=== PATIENT | female | born 1965 | race African-American/Black ===

== ENCOUNTER 2021-05-06 01:20 | Inpatient (IN) ==
[2021-05-06] MEDS ORDERED: ACETAMINOPHEN 500 MG TABLET PO STA (01:59)
[2021-05-06] MEDS ORDERED: SODIUM CHLORIDE 0.9% 500 ML IV STA (01:59)
[2021-05-06 03:10] LABS: Basophils % 0.3 % (0.0-0.8); Hematocrit 31.6 VOL% (35.7-47.0); Hemoglobin 10.1 GM/DL (12.0-16.0); Immature Granulocytes % 0.3 %; Immature Granulocytes Absolute 0.01 #; Lymphocytes # 0.7 10*3/uL (1.4-4.0); Lymphocytes % 23.1 % (21.3-54.2); Mean Platelet Volume 11.5 FL (9.6-12.0); Monocytes % 13.4 % (1.7-12.7); Neutrophils % 62.9 % (38.7-73.9); Platelet Count 142 T/CUMM (130-400); Red Blood Count 3.55 MC/CUMM (3.8-5.5); Red Cell Distribution Width 13.2 % (9.3-17.3); White Blood Count 3.2 T/CUMM (4-12)
[2021-05-06 03:20] LABS: Alanine Aminotransferase 25 U/L (13-56); Alkaline Phosphatase 73 U/L (45-117); Amylase 44 U/L (25-115); Aspartate Amino Transferase 30 U/L (0-37); Bilirubin,Total < 0.39 MG/DL (0.20-1.00); Blood Urea Nitrogen 27 MG/DL (7-18); Carbon Dioxide 29 MMOL/L (21-32); Estimated Glom Filtration Rate 101 ML/MIN; Glucose 106 MG/DL (74-106); Osmolality,Calculated 272.2 MOS/KG (273-304); Potassium 4.1 MMOL/L (3.5-5.1); Sodium 134 MMOL/L (136-145); Total Protein 6.6 G/DL (6.4-8.2)
[2021-05-06] MEDS ORDERED: CLOPIDOGREL 75 MG TABLET PO STA (06:06)
[2021-05-06] MEDS ORDERED: ROSUVASTATIN 20 MG TABLET PO STA (06:06)
[2021-05-06] MEDS ORDERED: ASPIRIN 300 MG SUPP RECTAL STA (06:06)
[2021-05-06] MEDS ORDERED: DOCUSATE SODIUM 100 MG CAPSULE PO PRN (08:04)
[2021-05-06] MEDS ORDERED: ALUMINUM/MAGNES/SIMETH MAX STR 30 ML UDCUP PO PRN (08:04)
[2021-05-06] MEDS ORDERED: GLUCAGON 1 MG VIAL IM PRN (08:04)
[2021-05-06] MEDS ORDERED: ONDANSETRON 4 MG/2 ML VIAL IV PRN ×2 (08:04→12:21)
[2021-05-06] MEDS ORDERED: DEXTROSE 50% 25 GM/50 ML SYRINGE IV PRN (08:08)
[2021-05-06 08:32] LABS: Thyroid Stimulating Hormone 0.475 uIU/ml (0.358-3.74)
[2021-05-06] MEDS: SODIUM CHLORIDE 0.9% 1,000 ML IV SCH ×2 (10:05→23:49)
[2021-05-06] MEDS ORDERED: MELATONIN 3 MG TABLET PO PRN (10:38)
[2021-05-06] MEDS: INSULIN LISPRO 100 UNIT/ML SUBCUT SCH ×3 (11:30→21:51)
[2021-05-06] MEDS ORDERED: MECLIZINE 25 MG TABLET PO PRN (12:21)
[2021-05-06] MEDS ORDERED: diphenhydrAMINE 50 MG/1 ML VIAL IV PRN ×2 (12:21)
[2021-05-06] MEDS ORDERED: ACETAMINOPHEN 325 MG TABLET PO PRN (12:21)
[2021-05-06] MEDS ORDERED: methylPREDNISolone SOD SUC 125 MG/2 ML VIAL IV PRN (12:21)
[2021-05-06] MEDS ORDERED: DEXTROSE 50% 25 GM/50 ML VIAL IV STA (12:53)
[2021-05-06 12:56] LABS: Bilirubin,Urine Negative (Negative); Blood, Urine Negative (Negative); Glucose,Urine (UA) Negative (Negative); Ketones,Urine 5 mg/dL (Negative); Nitrite,Urine Negative (Negative); Protein,Urine Negative; RBC,Urine 1 /HPF (0-4); Squamous Epithelial Cell,Urine Occasional /HPF (0-10); Urine Appearance CLEAR (Clear); Urine Color Straw (Yellow); Urine Specific Gravity 1.025 (1.001-1.035); Urine Urobilinogen < 2.0 EU/DL (<2.0)
[2021-05-06] MEDS ORDERED: DEXTROSE 50% 25 GM/50 ML SYRINGE IV STA (12:58)
[2021-05-06] MEDS ORDERED: BAMLANIVIMAB 700 MG, ETESEVIMAB 1,400 MG in SODIUM CHLORIDE 0.9% 40 ML IV ONE (13:30)
[2021-05-06] MEDS: ENOXAPARIN 40 MG/0.4 ML SYRINGE SUBCUT SCH (22:22)
[2021-05-06] MEDS: ASCORBIC ACID 500 MG TABLET PO SCH (22:22)
[2021-05-07 05:51] LABS: Basophils % 0.5 % (0.0-0.8); Eosinophils % 0.5 % (0.00-10.9); Hematocrit 31.4 VOL% (35.7-47.0); Immature Granulocytes % 0.3 %; Immature Granulocytes Absolute 0.01 #; Lymphocytes # 1.1 10*3/uL (1.4-4.0); Lymphocytes % 28.6 % (21.3-54.2); Mean Corpuscular HGB Conc 31.8 GM/DL (32-36); Mean Corpuscular Volume 90.2 FL (87-102); Mean Platelet Volume 12.2 FL (9.6-12.0); Monocytes % 13.3 % (1.7-12.7); Neutrophils % 56.8 % (38.7-73.9); Platelet Count 110 T/CUMM (130-400); Red Blood Count 3.48 MC/CUMM (3.8-5.5); Red Cell Distribution Width 13.3 % (9.3-17.3); White Blood Count 3.8 T/CUMM (4-12)
[2021-05-07 06:10] LABS: Hypochromia 1+; Microcytosis 1+
[2021-05-07 06:15] LABS: Albumin 2.6 G/DL (3.4-5.0); Bilirubin,Total 1.4 MG/DL (0.20-1.00); Calcium 8.4 MG/DL (8.5-10.1); Osmolality,Calculated 278.3 MOS/KG (273-304); Potassium 3.5 MMOL/L (3.5-5.1); Risk Ratio 2.64; Total Protein 6.3 G/DL (6.4-8.2); VLDL Cholesterol 18.4 MG/DL
[2021-05-07] MEDS: PANTOPRAZOLE 40 MG TABLET PO SCH (06:49)
[2021-05-07] MEDS: INSULIN LISPRO 100 UNIT/ML SUBCUT SCH ×4 (07:30→21:55)
[2021-05-07] MEDS ORDERED: DEXTROSE 50% 25 GM/50 ML VIAL IV ONE (08:32)
[2021-05-07] MEDS ORDERED: DEXTROSE 50% 25 GM/50 ML SYRINGE IV ONE (09:00)
[2021-05-07] MEDS ORDERED: DEXAMETHASONE 4 MG/1 ML VIAL IV SCH (09:00)
[2021-05-07] MEDS: ASCORBIC ACID 500 MG TABLET PO SCH ×2 (11:20→21:55)
[2021-05-07] MEDS: ZINC GLUCONATE 50 MG TABLET PO SCH (11:20)
[2021-05-07] MEDS: CLOPIDOGREL 75 MG TABLET PO SCH (11:20)
[2021-05-07] MEDS: ASPIRIN 325 MG TABLET PO SCH (11:20)
[2021-05-07] MEDS: CETIRIZINE 10 MG TABLET PO SCH (11:20)
[2021-05-07] MEDS: ROSUVASTATIN 20 MG TABLET PO SCH (11:20)
[2021-05-07] MEDS: CHOLECALCIFEROL 1,000 UNIT TABLET PO SCH (11:20)
[2021-05-07] MEDS ORDERED: MORPHINE 2 MG/1 ML SYRINGE IV STA (14:11)
[2021-05-07] MEDS: SODIUM CHLORIDE 0.9% 1,000 ML IV SCH ×2 (15:51→17:45)
[2021-05-07] MEDS: PIPERACILLIN/TAZOBACTAM 3,375 MG in SODIUM CHLORIDE 0.9% 100 ML IV SCH ×2 (18:52→23:50)
[2021-05-07] MEDS: VANCOMYCIN INJ 2,000 MG in SODIUM CHLORIDE 0.9% 500 ML IV SCH (21:45)
[2021-05-07] MEDS: ENOXAPARIN 40 MG/0.4 ML SYRINGE SUBCUT SCH (21:55)
[2021-05-08] MEDS: SODIUM CHLORIDE 0.9% 1,000 ML IV SCH ×3 (03:25→21:03)
[2021-05-08 06:09] LABS: Hematocrit 33.4 VOL% (35.7-47.0); Hemoglobin 10.9 GM/DL (12.0-16.0); Immature Granulocytes % 0.3 %; Immature Granulocytes Absolute 0.01 #; Lymphocytes % 26.2 % (21.3-54.2); Mean Corpuscular HGB Conc 32.6 GM/DL (32-36); Mean Corpuscular Volume 88.8 FL (87-102); Mean Platelet Volume 11.4 FL (9.6-12.0); Monocytes % 15.4 % (1.7-12.7); Neutrophils % 58.1 % (38.7-73.9); Platelet Count 122 T/CUMM (130-400); Red Blood Count 3.76 MC/CUMM (3.8-5.5); Red Cell Distribution Width 13.2 % (9.3-17.3); White Blood Count 3.6 T/CUMM (4-12)
[2021-05-08] MEDS: PANTOPRAZOLE 40 MG TABLET PO SCH (06:15)
[2021-05-08 06:33] LABS: Calcium 8.6 MG/DL (8.5-10.1); Osmolality,Calculated 287.7 MOS/KG (273-304); Potassium 3.8 MMOL/L (3.5-5.1)
[2021-05-08 06:41] LABS: Calcium 8.5 MG/DL (8.5-10.1); Ferritin 527.2 ng/mL (8-252)
[2021-05-08] MEDS: PIPERACILLIN/TAZOBACTAM 3,375 MG in SODIUM CHLORIDE 0.9% 100 ML IV SCH ×2 (09:00→18:00)
[2021-05-08] MEDS: CHOLECALCIFEROL 1,000 UNIT TABLET PO SCH (09:00)
[2021-05-08] MEDS: CETIRIZINE 10 MG TABLET PO SCH (09:50)
[2021-05-08] MEDS: methylPREDNISolone SOD SUC 40 MG/1 ML VIAL IV SCH ×2 (09:50→18:47)
[2021-05-08] MEDS: ZINC GLUCONATE 50 MG TABLET PO SCH (09:50)
[2021-05-08] MEDS: INSULIN LISPRO 100 UNIT/ML SUBCUT SCH ×4 (10:31→20:13)
[2021-05-08] MEDS: ASPIRIN 325 MG TABLET PO SCH (15:33)
[2021-05-08] MEDS: ROSUVASTATIN 20 MG TABLET PO SCH (15:33)
[2021-05-08] MEDS: ALBUTEROL/IPRATROPIUM 3 ML NEB RESP TX SCH (15:34)
[2021-05-08] MEDS: CLOPIDOGREL 75 MG TABLET PO SCH (15:34)
[2021-05-08] MEDS: ASCORBIC ACID 500 MG TABLET PO SCH ×2 (15:34→20:30)
[2021-05-08] MEDS: VANCOMYCIN INJ 2,000 MG in SODIUM CHLORIDE 0.9% 500 ML IV SCH ×2 (15:35→21:12)
[2021-05-08] MEDS ORDERED: INFLUENZA VIRUS VACCINE 0.5 ML SYRINGE IM ONE (19:06)
[2021-05-08] MEDS: ENOXAPARIN 40 MG/0.4 ML SYRINGE SUBCUT SCH ×2 (20:30→20:43)
[2021-05-09] MEDS: methylPREDNISolone SOD SUC 40 MG/1 ML VIAL IV SCH ×3 (00:51→14:59)
[2021-05-09] MEDS: PIPERACILLIN/TAZOBACTAM 3,375 MG in SODIUM CHLORIDE 0.9% 100 ML IV SCH ×3 (00:51→15:09)
[2021-05-09 05:38] LABS: Hematocrit 33.4 VOL% (35.7-47.0); Immature Granulocytes % 0.8 %; Immature Granulocytes Absolute 0.03 #; Lymphocytes # 0.8 10*3/uL (1.4-4.0); Lymphocytes % 19.3 % (21.3-54.2); Mean Corpuscular HGB Conc 32.9 GM/DL (32-36); Mean Corpuscular Volume 88.4 FL (87-102); Mean Platelet Volume 11.3 FL (9.6-12.0); Monocytes % 8.2 % (1.7-12.7); Neutrophils % 71.7 % (38.7-73.9); Platelet Count 125 T/CUMM (130-400); Red Blood Count 3.78 MC/CUMM (3.8-5.5); Red Cell Distribution Width 13.2 % (9.3-17.3); White Blood Count 3.9 T/CUMM (4-12)
[2021-05-09 05:57] LABS: Blood Urea Nitrogen 13 MG/DL (7-18); Calcium 8.4 MG/DL (8.5-10.1); Carbon Dioxide 24 MMOL/L (21-32); Estimated Glom Filtration Rate 152 ML/MIN; Ferritin 418.5 ng/mL (8-252); Glucose 105 MG/DL (74-106); Osmolality,Calculated 285.8 MOS/KG (273-304); Potassium 3.5 MMOL/L (3.5-5.1); Sodium 144 MMOL/L (136-145)
[2021-05-09 06:11] LABS: Anisocytosis 1+; Burr Cells 1+; Platelet Estimate Adequate
[2021-05-09] MEDS: PANTOPRAZOLE 40 MG TABLET PO SCH (06:14)
[2021-05-09] MEDS: SODIUM CHLORIDE 0.9% 1,000 ML IV SCH ×4 (07:18→18:22)
[2021-05-09] MEDS: ALBUTEROL/IPRATROPIUM 3 ML NEB RESP TX SCH ×3 (07:48→13:29)
[2021-05-09] MEDS: ASPIRIN 325 MG TABLET PO SCH (08:02)
[2021-05-09] MEDS: CETIRIZINE 10 MG TABLET PO SCH (08:02)
[2021-05-09] MEDS: ROSUVASTATIN 20 MG TABLET PO SCH (08:02)
[2021-05-09] MEDS: ASCORBIC ACID 500 MG TABLET PO SCH ×2 (08:02→20:45)
[2021-05-09] MEDS: ZINC GLUCONATE 50 MG TABLET PO SCH (08:03)
[2021-05-09] MEDS: CHOLECALCIFEROL 1,000 UNIT TABLET PO SCH (08:03)
[2021-05-09] MEDS: amLODIPine 10 MG TABLET PO SCH (08:09)
[2021-05-09] MEDS: hydroCHLOROthiazide 25 MG TABLET PO SCH (08:09)
[2021-05-09] MEDS: CLOPIDOGREL 75 MG TABLET PO SCH (08:09)
[2021-05-09] MEDS: INSULIN LISPRO 100 UNIT/ML SUBCUT SCH ×4 (09:25→20:45)
[2021-05-09] MEDS: ENOXAPARIN 40 MG/0.4 ML SYRINGE SUBCUT SCH (20:45)
[2021-05-10] MEDS: PIPERACILLIN/TAZOBACTAM 3,375 MG in SODIUM CHLORIDE 0.9% 100 ML IV SCH ×3 (01:55→17:19)
[2021-05-10] MEDS: SODIUM CHLORIDE 0.9% 1,000 ML IV SCH ×2 (01:55→13:40)
[2021-05-10] MEDS: methylPREDNISolone SOD SUC 40 MG/1 ML VIAL IV SCH ×2 (02:45→08:26)
[2021-05-10 05:02] LABS: Hematocrit 34.5 VOL% (35.7-47.0); Hemoglobin 11.2 GM/DL (12.0-16.0); Immature Granulocytes % 0.8 %; Immature Granulocytes Absolute 0.04 #; Lymphocytes % 19.1 % (21.3-54.2); Mean Corpuscular HGB Conc 32.5 GM/DL (32-36); Mean Platelet Volume 11.1 FL (9.6-12.0); Monocytes % 11.1 % (1.7-12.7); Platelet Count 141 T/CUMM (130-400); Red Blood Count 3.92 MC/CUMM (3.8-5.5); Red Cell Distribution Width 13.2 % (9.3-17.3); White Blood Count 5.1 T/CUMM (4-12)
[2021-05-10 05:19] LABS: Blood Urea Nitrogen 15 MG/DL (7-18); Calcium 8.8 MG/DL (8.5-10.1); Carbon Dioxide 27 MMOL/L (21-32); Estimated Glom Filtration Rate 142 ML/MIN; Ferritin 330.8 ng/mL (8-252); Glucose 113 MG/DL (74-106); Osmolality,Calculated 291.6 MOS/KG (273-304); Potassium 3.2 MMOL/L (3.5-5.1); Sodium 146 MMOL/L (136-145)
[2021-05-10 06:27] LABS: Burr Cells Few; Platelet Estimate Adequate
[2021-05-10] MEDS: PANTOPRAZOLE 40 MG TABLET PO SCH (06:35)
[2021-05-10] MEDS: ALBUTEROL/IPRATROPIUM 3 ML NEB RESP TX SCH ×3 (07:24→13:41)
[2021-05-10] MEDS: INSULIN LISPRO 100 UNIT/ML SUBCUT SCH ×4 (07:25→23:06)
[2021-05-10] MEDS ORDERED: hydrALAZINE 20 MG/1 ML VIAL IV ONE (08:26)
[2021-05-10] MEDS: ROSUVASTATIN 20 MG TABLET PO SCH (08:27)
[2021-05-10] MEDS: CHOLECALCIFEROL 1,000 UNIT TABLET PO SCH (08:27)
[2021-05-10] MEDS: hydroCHLOROthiazide 25 MG TABLET PO SCH (08:27)
[2021-05-10] MEDS: ASPIRIN 325 MG TABLET PO SCH (08:27)
[2021-05-10] MEDS: CETIRIZINE 10 MG TABLET PO SCH (08:27)
[2021-05-10] MEDS: ZINC GLUCONATE 50 MG TABLET PO SCH (08:27)
[2021-05-10] MEDS: amLODIPine 10 MG TABLET PO SCH (08:28)
[2021-05-10] MEDS: CLOPIDOGREL 75 MG TABLET PO SCH (08:28)
[2021-05-10] MEDS: ASCORBIC ACID 500 MG TABLET PO SCH ×2 (08:28→22:45)
[2021-05-10] MEDS: POTASSIUM CHLORIDE RIDER 10 MEQ/100 ML PREMIX IV SCH ×3 (08:58→11:14)
[2021-05-10] MEDS: LEVOFLOXACIN INJ 500 MG/100 ML PREMIX IV SCH (10:12)
[2021-05-10] MEDS ORDERED: hydrALAZINE 20 MG/1 ML VIAL IV PRN (15:32)
[2021-05-10] MEDS ORDERED: hydrALAZINE 25 MG TABLET PO SCH (21:00)
[2021-05-10] MEDS: ENOXAPARIN 40 MG/0.4 ML SYRINGE SUBCUT SCH (22:45)
[2021-05-11] MEDS: PIPERACILLIN/TAZOBACTAM 3,375 MG in SODIUM CHLORIDE 0.9% 100 ML IV SCH ×3 (01:20→16:32)
[2021-05-11] MEDS: PANTOPRAZOLE 40 MG TABLET PO SCH (05:43)
[2021-05-11 06:04] LABS: Calcium 8.6 MG/DL (8.5-10.1)
[2021-05-11] MEDS: CHOLECALCIFEROL 1,000 UNIT TABLET PO SCH (08:33)
[2021-05-11] MEDS: hydroCHLOROthiazide 25 MG TABLET PO SCH (08:33)
[2021-05-11] MEDS: amLODIPine 10 MG TABLET PO SCH (08:33)
[2021-05-11] MEDS: ASPIRIN 325 MG TABLET PO SCH (08:33)
[2021-05-11] MEDS: ROSUVASTATIN 20 MG TABLET PO SCH (08:33)
[2021-05-11] MEDS: ASCORBIC ACID 500 MG TABLET PO SCH ×2 (08:34→21:40)
[2021-05-11] MEDS: ZINC GLUCONATE 50 MG TABLET PO SCH (08:34)
[2021-05-11] MEDS: CLOPIDOGREL 75 MG TABLET PO SCH (08:34)
[2021-05-11] MEDS: CETIRIZINE 10 MG TABLET PO SCH (08:34)
[2021-05-11] MEDS: INSULIN LISPRO 100 UNIT/ML SUBCUT SCH ×4 (08:49→22:28)
[2021-05-11] MEDS ORDERED: predniSONE 20 MG TABLET PO SCH (09:00)
[2021-05-11] MEDS: POTASSIUM CHLORIDE RIDER 10 MEQ/100 ML PREMIX IV SCH ×3 (12:51→14:04)
[2021-05-11 13:42] LABS: Basophils % 0.3 % (0.0-0.8); Hematocrit 32.4 VOL% (35.7-47.0); Hemoglobin 10.5 GM/DL (12.0-16.0); Immature Granulocytes % 0.6 %; Immature Granulocytes Absolute 0.05 #; Lymphocytes # 1.9 10*3/uL (1.4-4.0); Lymphocytes % 24.5 % (21.3-54.2); Mean Corpuscular HGB Conc 32.4 GM/DL (32-36); Mean Platelet Volume 11.7 FL (9.6-12.0); Monocytes % 11.5 % (1.7-12.7); Neutrophils % 63.1 % (38.7-73.9); Platelet Count 163 T/CUMM (130-400); Red Blood Count 3.64 MC/CUMM (3.8-5.5); Red Cell Distribution Width 13.4 % (9.3-17.3); White Blood Count 7.8 T/CUMM (4-12)
[2021-05-11] MEDS ORDERED: POTASSIUM CHLORIDE 20 MEQ TABLET PO ONE (14:39)
[2021-05-11] MEDS: LEVOFLOXACIN INJ 500 MG/100 ML PREMIX IV SCH (15:07)
[2021-05-11 17:15] LABS: Lymphocytes 16 % (20-55); Segmented Neutrophils 73 % (50-85); Total Cells Counted 100
[2021-05-11 17:16] LABS: Burr Cells 3+; Toxic Granulation 1+
[2021-05-11 17:17] LABS: Anisocytosis 1+; Platelet Estimate Normal; Poikilocytosis 1+
[2021-05-11] MEDS: ENOXAPARIN 40 MG/0.4 ML SYRINGE SUBCUT SCH (21:41)
[2021-05-11] MEDS: SODIUM CHLORIDE 0.9% 1,000 ML IV SCH ×2 (22:27→22:28)
[2021-05-12] MEDS: PIPERACILLIN/TAZOBACTAM 3,375 MG in SODIUM CHLORIDE 0.9% 100 ML IV SCH (00:25)
[2021-05-12 05:34] VITALS: BP 145/85
[2021-05-12 06:04] LABS: Albumin 2.4 G/DL (3.4-5.0); Bilirubin,Total 0.9 MG/DL (0.20-1.00); Calcium 8.6 MG/DL (8.5-10.1); Osmolality,Calculated 285.8 MOS/KG (273-304); Potassium 3.2 MMOL/L (3.5-5.1); Total Protein 5.9 G/DL (6.4-8.2)
== END 2021-05-12 06:55 | disposition home or self-care (01) | DRG 64 ==
LOC: EDUNIT# → EDBD → N.ED 01:20 → N.EDINP 08:04 → SUATTDRO 08:04 → N.CC 05-07 18:27 → N.3E 05-10 16:42
PROVIDERS: ADMIT Internal Medicine; ATTEND Internal Medicine